=== PATIENT | male | born 1985 | race Caucasian/White ===

== ENCOUNTER 2017-05-06 17:25 | Emergency (ER) | payer OTHER ==
[~2017-05-06] VITALS: Ht 180.3 cm; Wt 124.7 kg
[~2017-05-06 17:25] MED LIST: ANTI-INFLAMMATORY; AUG250 PO; CEF300 PO; CELE-1 PO; CETI-176 PO; CHOL10005 PO; CIPR-214 PO; CIPR-344 PO; DIA5 PO; DOC100 PO; DOCU-416 PO; ENO100I SC; ESOM40CA42 PO; FLUO-202 PO; HYDR-4309 PO; HYDR100C9 PO; HYDR10TA3 PO; HYDR50CA48 PO; IBUP600T22 PO; LAMO200T46 PO; LOR5/325 PO; LURA40TA3 PO; METR-1 PO; MULT-1335 PO; MUSCLE RELAXER; OMEP-137 PO; OMEP-218 PO; ONDA4TAB PO; ONDA8TAB94 PO; OXY10 PO; OXYC-854 PO; PANT40TA65 PO; PER PO; PHEN200T32 PO; PRAZ1CAP26 PO; PRED20TA6 PO; PROM-110 PO; RIFA200T4 PO; TRAM-420 PO; TRAZ-133 PO; TRIA10.8; WARF3TAB36 PO; ZOLP-1 PO
--- NOTE | 2017-05-06 17:35 | ER Report ---
History and Physical Time Seen By MD: 17:34 (MACRINA LEY MD) HPI/ROS CHIEF COMPLAINT: Abdominal pain HISTORY OF PRESENT ILLNESS: Patient is [age] male who presents with 2-3 days worth of abdominal cramping nausea vomiting and diarrhea. Patient denies fevers or chills. Denies any antibiotic use or recent travel history. Patient has had 3 -4 episodes similar in the past and was diagnosed each time with irritable bowel syndrome. Patient reports some anorexia secondary to nausea. Denies any chest symptoms or flulike symptoms. Patient denies any blood or mucus in the stool. REVIEW OF SYSTEMS: Constitutional: No fever, no chills. Eyes: No discharge. ENT: No sore throat. Cardiovascular: No chest pain, no palpitations. Respiratory: No cough, no shortness of breath. Gastrointestinal: Periumbilical abdominal discomfort and cramping, nausea, vomiting and diarrhea. Genitourinary: No hematuria. Musculoskeletal: No back pain. Skin: No rashes. Neurological: No headache. (MACRINA LEY MD) Allergies: Coded Allergies: No Known Drug Allergies (Verified , 08/21/16) Home Meds Active Scripts Hydrocodone Bit/Acetaminophen (HYDROCODON-ACETAMINOPHEN 5-325) 1 Each Tablet, 1 EACH PO Q4H Y for PAIN, #12 TAB 0 Refills Prov:CRUZ BROCK MD 05/06/17 Ondansetron (ZOFRAN ODT) 4 Mg Tab.rapdis, 4 MG PO Q6H Y for NAUSEA/VOMITING, # 20 TAB.FRANKO 0 Refills Prov:CRUZ BROCK MD 05/06/17 Hyoscyamine Sulfate (HYOSCYAMINE SULFATE) 0.125 Mg Tab.subl, 0.125 MG SL QID Y for BLOATING, #60 TAB.SL 0 Refills Prov:CRUZ BROCK MD 05/06/17 Ibuprofen (IBUPROFEN) 600 Mg Tablet, 1 TAB PO Q6H, #60 TAB 0 Refills Prov:ROXANA ABDI MD 01/20/17 Reported Medications Celecoxib (CELEBREX) 200 Mg Capsule, 200 MG PO QDAY, CAPSULE 01/13/17 Zolpidem Tartrate (AMBIEN) Unknown Strength Tablet, PO QHS Y for prn, TAB 12/07/16 Hydroxyzine Hcl (HYDROXYZINE HCL) Unknown Strength Tablet, PO PRN 12/07/16 Prazosin Hcl (PRAZOSIN HCL) 1 Mg Capsule, 1 TAB PO QHS, #30 12/23/15 Esomeprazole Magnesium (NEXIUM) 40 Mg Capsule.dr, 1 CAP PO QDAY, CAP 09/14/15 Lamotrigine (LAMICTAL) 200 Mg Tablet, 200 MG PO DAILY 04/30/13 Fluoxetine Hcl (PROZAC) 20 Mg Capsule, 20 MG PO QDAY, CAPSULE 04/30/13 Past Medical/Surgical History Gastroesophageal reflux disease, Past medical history for pulmonary embolism, history of anxiety posttraumatic stress disorder (MACRINA LEY MD) Hx Smoking: Yes ([employer]. NONE FOR YEARS.) Smoking Status: Former Smoker Exposure to Second Hand Smoke?: Yes Hx Substance Use Disorder: No Hx Alcohol Use: Yes (MACRINA LEY MD) Constitutional Vital Sign - Last 24 Hours 05/06/17 05/06/17 05/06/17 05/06/17 17:30 17:39 17:40 17:55 Pulse 92 86 Resp 20 B/P (MAP) 142/106 142/106 (118) 143/98 (113) Pulse Ox 94 93 O2 Delivery Room Air 05/06/17 05/06/17 05/06/17 05/06/17 18:00 19:32 19:35 19:53 Pulse 76 64 B/P (MAP) 120/96 (104) 127/87 (100) Pulse Ox 91 95 05/06/17 19:57 Pulse 85 Resp 16 B/P (MAP) 128/85 (99) Pulse Ox 92 O2 Delivery Room Air Intake and Output 05/06/17 05/06/17 05/07/17 15:00 23:00 07:00 Intake Total 1000 ml Balance 1000 ml (CRUZ BROCK MD) Physical Exam General Appearance: The patient is alert, has no immediate need for airway protection and no signs of toxicity. Eyes: Pupils equal and round no pallor or injection. ENT, Mouth: Mucous membranes are moist. Respiratory: There are no retractions, lungs are clear to auscultation. Cardiovascular: Regular rate and rhythm. [ ] Gastrointestinal: Abdomen is soft diffuse periumbilical abdominal pain without guarding or rebound tenderness Neurological: Awake and alert Skin: Warm and dry, no rashes. Musculoskeletal: Neck is supple non tender. Extremities are nontender, nonswollen and have full range of motion. (MACRINA LEY MD) Medical Decision Making Data Points Result Diagram: 05/06/17 1744 05/06/17 1744 Laboratory Hematology Test 05/06/17 17:35 05/06/17 17:44 Urine Color Ernestine Urine Clarity Turbid Urine pH 5.0 pH (4.8-9.5) Urine Specific [place] 1.028 Urine Protein 30 mg/dL (NEGATIVE) Urine Glucose (UA) Negative mg/dL (NEGATIVE) Urine Ketones Negative mg/dL (NEGATIVE) Urine Blood Negative (NEGATIVE) Urine Nitrite Negative (NEGATIVE) Urine Bilirubin Negative (NEGATIVE) Urine Urobilinogen Negative mg/dL (0.2-1.9) Urine Leukocyte Esterase Negative (NEGATIVE) Urine RBC None /HPF (0-2/HPF) Urine WBC None /HPF (0-5/HPF) Urine Squamous Epithelial Cells None /LPF (</=FEW) Urine Amorphous Crystals Few /HPF Urine Bacteria Negative /HPF (NONE-FEW) Urine Mucus Few /HPF (NONE-FEW) Stool Occult Blood (IFOB) Positive (NEGATIVE) Red Blood Count 5.69 M/uL (4.00-5.60) Mean Corpuscular Volume 90.9 fL (80.0-96.0) Mean Corpuscular Hemoglobin 31.7 pg (26.0-33.0) Mean Corpuscular Hemoglobin Concent 34.9 g/dL (32.0-36.0) Red Cell Distribution Width 13.4 % (11.5-14.5) Mean Platelet Volume 8.4 fL (7.2-11.1) Neutrophils (%) (Auto) 67.4 % (39.4-72.5) Lymphocytes (%) (Auto) 22.9 % (17.6-49.6) Monocytes (%) (Auto) 7.6 % (4.1-12.4) Eosinophils (%) (Auto) 1.7 % (0.4-6.7) Basophils (%) (Auto) 0.4 % (0.3-1.4) Nucleated RBC Relative Count (auto) 0.1 /100WBC Neutrophils # (Auto) 7.0 K/uL (2.0-7.4) Lymphocytes # (Auto) 2.4 K/uL (1.3-3.6) Monocytes # (Auto) 0.8 K/uL (0.3-1.0) Eosinophils # (Auto) 0.2 K/uL (0.0-0.5) Basophils # (Auto) 0.0 K/uL (0.0-0.1) Nucleated RBC Absolute Count (auto) 0.01 K/uL Stool Leukocytes, Qualitative Positive Sodium Level 137 mmol/L (137-145) Potassium Level 3.8 mmol/L (3.5-5.0) Chloride Level 100 mmol/L (98-107) Carbon Dioxide Level 23 mmol/L (22-30) Blood Urea Nitrogen 8 mg/dl (9-21) Creatinine 0.90 mg/dl (0.66-1.25) Glomerular Filtration Rate Calc > 60.0 Random Glucose 107 mg/dl (75-110) Calcium Level 9.2 mg/dl (8.4-10.2) Total Bilirubin 0.8 mg/dl (0.2-1.3) Aspartate Amino Transf (AST/SGOT) 31 U/L (0-35) Alanine Aminotransferase (ALT/SGPT) 64 U/L (0-56) Alkaline Phosphatase 69 U/L (0-126) Total Protein 7.8 gm/dl (6.3-8.2) Albumin 4.5 g/dl (3.5-5.0) Lipase 88 U/L (23-300) Clostridium Difficile Toxin A & B Negative Clostridium difficile Antigen Negative Helicobacter pylori IgG Antibody Negative (NEGATIVE) Chemistry Test 05/06/17 17:35 05/06/17 17:44 Urine Color Ernestine Urine Clarity Turbid Urine pH 5.0 pH (4.8-9.5) Urine Specific [place] 1.028 Urine Protein 30 mg/dL (NEGATIVE) Urine Glucose (UA) Negative mg/dL (NEGATIVE) Urine Ketones Negative mg/dL (NEGATIVE) Urine Blood Negative (NEGATIVE) Urine Nitrite Negative (NEGATIVE) Urine Bilirubin Negative (NEGATIVE) Urine Urobilinogen Negative mg/dL (0.2-1.9) Urine Leukocyte Esterase Negative (NEGATIVE) Urine RBC None /HPF (0-2/HPF) Urine WBC None /HPF (0-5/HPF) Urine Squamous Epithelial Cells None /LPF (</=FEW) Urine Amorphous Crystals Few /HPF Urine Bacteria Negative /HPF (NONE-FEW) Urine Mucus Few /HPF (NONE-FEW) Stool Occult Blood (IFOB) Positive (NEGATIVE) White Blood Count 10.4 k/uL (4.5-11.0) Red Blood Count 5.69 M/uL (4.00-5.60) Hemoglobin 18.0 g/dL (14.0-18.0) Hematocrit 51.7 % (42.0-52.0) Mean Corpuscular Volume 90.9 fL (80.0-96.0) Mean Corpuscular Hemoglobin 31.7 pg (26.0-33.0) Mean Corpuscular Hemoglobin Concent 34.9 g/dL (32.0-36.0) Red Cell Distribution Width 13.4 % (11.5-14.5) Platelet Count 305 K/uL (150-450) Mean Platelet Volume 8.4 fL (7.2-11.1) Neutrophils (%) (Auto) 67.4 % (39.4-72.5) Lymphocytes (%) (Auto) 22.9 % (17.6-49.6) Monocytes (%) (Auto) 7.6 % (4.1-12.4) Eosinophils (%) (Auto) 1.7 % (0.4-6.7) Basophils (%) (Auto) 0.4 % (0.3-1.4) Nucleated RBC Relative Count (auto) 0.1 /100WBC Neutrophils # (Auto) 7.0 K/uL (2.0-7.4) Lymphocytes # (Auto) 2.4 K/uL (1.3-3.6) Monocytes # (Auto) 0.8 K/uL (0.3-1.0) Eosinophils # (Auto) 0.2 K/uL (0.0-0.5) Basophils # (Auto) 0.0 K/uL (0.0-0.1) Nucleated RBC Absolute Count (auto) 0.01 K/uL Stool Leukocytes, Qualitative Positive Glomerular Filtration Rate Calc > 60.0 Calcium Level 9.2 mg/dl (8.4-10.2) Total Bilirubin 0.8 mg/dl (0.2-1.3) Aspartate Amino Transf (AST/SGOT) 31 U/L (0-35) Alanine Aminotransferase (ALT/SGPT) 64 U/L (0-56) Alkaline Phosphatase 69 U/L (0-126) Total Protein 7.8 gm/dl (6.3-8.2) Albumin 4.5 g/dl (3.5-5.0) Lipase 88 U/L (23-300) Clostridium Difficile Toxin A & B Negative Clostridium difficile Antigen Negative Helicobacter pylori IgG Antibody Negative (NEGATIVE) Urinalysis Test 05/06/17 17:35 Urine Color Ernestine Urine Clarity Turbid Urine pH 5.0 pH (4.8-9.5) Urine Specific [place] 1.028 Urine Protein 30 mg/dL (NEGATIVE) Urine Glucose (UA) Negative mg/dL (NEGATIVE) Urine Ketones Negative mg/dL (NEGATIVE) Urine Blood Negative (NEGATIVE) Urine Nitrite Negative (NEGATIVE) Urine Bilirubin Negative (NEGATIVE) Urine Urobilinogen Negative mg/dL (0.2-1.9) Urine Leukocyte Esterase Negative (NEGATIVE) Urine RBC None /HPF (0-2/HPF) Urine WBC None /HPF (0-5/HPF) Urine Squamous Epithelial Cells None /LPF (</=FEW) Urine Amorphous Crystals Few /HPF Urine Bacteria Negative /HPF (NONE-FEW) Urine Mucus Few /HPF (NONE-FEW) (CRUZ BROCK MD) EKG/Imaging Imaging CT abdomen and pelvis with IV contrast Indication: Abdominal pain. Comparison: 04/16/2014.. Technique: Axial CT images were obtained through the abdomen and pelvis during injection of nonionic iodinated intravenous contrast. Reformatted coronal and sagittal images were also obtained. One of the following dose optimization techniques was utilized in the performance of this exam: Automated exposure control; adjustment of the mA and/ or kV according to the patient's size; or use of an iterative reconstruction technique. Specific details can be referenced in the facility's radiology CT exam operational policy. Contrast: 75 ml of Isovue-370 IV contrast. Findings: Lower lung chowdary: Limited views lower lung field are unremarkable. Liver: No focal parenchymal abnormality of the liver. Biliary: Gallbladder appears unremarkable as well as the intra and extra hepatic biliary system. Pancreas: Normal appearance. Spleen: Normal appearance. Adrenal glands: Unremarkable. Kidneys / retroperitoneum: No evidence of nephrolithiasis or hydronephrosis. No focal abnormality. Bowel / peritoneum / mesenteries: Colon is mainly decompressed shows no focal normality. The appendix normal. Small bowel shows no focal abnormality or obstruction. Stomach is unremarkable. No free air, free fluid, fluid collections or areas of inflammation. Small umbilical hernia containing fat. Lymph node assessment: No pathologic adenopathy identified. Pelvic structures: Appear unremarkable. Vessels: No significant atherosclerotic calcifications seen throughout a nonaneurysmal abdominal aorta and branches. Musculoskeletal / Body wall: No acute or aggressive osseous abnormality. Incidental note of an unilateral right pars defect at L5 level without spondylolisthesis. IMPRESSION: 1. No acute intra-abdominal abnormality 2. Incidental note of an unilateral right pars defect at L5 level without spondylolisthesis. Report Dictated By: Beto Valle at 05/06/2017 6:24 PM (CRUZ BROCK MD) ED Course/Re-evaluation ED Course 05/06/2017 5:53:45 pm patient with periumbilical abdominal pain for the past 2- 3 days along with nausea vomiting and diarrhea. We will place an IV given a liter of normal saline. We'll give IV Zofran and IV Toradol and Lomotil. We will perform abdominal CT scan with IV contrast. Decision to Disposition Date: May 06, 2017 Decision to Disposition Time: 18:00 (MACRINA LEY MD) Clinical Indication for ER IV: Hydration, IV Access ED Course Reviewed this patient with Dr. Ley at shift change and assumed care of the patient. I reviewed lab tests with the patient. No major problems. Based on symptoms and history, sounds like he has irritable bowel syndrome. We talked at length about option. Will continue with Zofran for nausea. He will try some Gas- X for gas. Will start Hyoscyamine to try as an anti-spasmodic. Will provide limited supply of Lortab and discussed the need to be very cautious with this given need to not become dependent and the possibility of too big a swing to constipation. Decision to Disposition Date: May 06, 2017 Decision to Disposition Time: 19:53 (CRUZ BROCK MD) Depart Departure Latest Vital Signs Vital Signs Date Time Temp Pulse Resp B/P (MAP) Pulse Ox O2 Delivery O2 Flow Rate FiO2 05/06/17 19:57 85 16 128/85 (99) 92 Room Air (CRUZ BROCK MD) Impression: Primary Impression: Irritable bowel syndrome Condition: Improved Disposition: HOME OR SELF-CARE Referrals: ARMOND,KARTHIK N PA-C (PCP) New Scripts Hydrocodone Bit/Acetaminophen (HYDROCODON-ACETAMINOPHEN 5-325) 1 Each Tablet 1 EACH PO Q4H Y for PAIN, #12 TAB 0 Refills Prov: CRUZ BROCK MD 05/06/17 Ondansetron (ZOFRAN ODT) 4 Mg Tab.rapdis 4 MG PO Q6H Y for NAUSEA/VOMITING, #20 TAB.FRANKO 0 Refills Prov: CRUZ BROCK MD 05/06/17 Hyoscyamine Sulfate (HYOSCYAMINE SULFATE) 0.125 Mg Tab.subl 0.125 MG SL QID Y for BLOATING, #60 TAB.SL 0 Refills Prov: CRUZ BROCK MD 05/06/17 Patient Instructions: Irritable Bowel Syndrome (ED) Additional Instructions: Try the anti-spasmodic medication hyoscyamine 0.125mg tablets every 6 hours as needed for spasming and pain. Try using some gas-x over the counter. Zofran 4mg, one every 6 hours as needed for nausea. For severe pain, Lortab 5/325, one every 4 hours. Follow-up with your regular doctor for further evaluation. If the hyoscyamine does not help, other antispasmodics can still be effective, often requiring trials of the different ones to see what works. Problem Qualifiers Primary Impression: Irritable bowel syndrome Irritable bowel syndrome type: with both diarrhea and constipation Qualified Codes: K58.2 - Mixed irritable bowel syndrome MACRINA LEY MD May 06, 2017 17:35 CRUZ BROCK MD May 06, 2017 18:54
[2017-05-06] MEDS ORDERED: NS(*) 0.9% 1000 ML BAG 1,000 ML IV ONE (17:49)
[2017-05-06] MEDS ORDERED: DIPHENOX/ATROPINE 2.5-0.025MG PO ONE (17:50)
[2017-05-06] MEDS ORDERED: ONDANSETRON 4 MG/2 ML VIAL IVP ONE ×2 (17:50→19:55)
[2017-05-06] MEDS ORDERED: KETOROLAC 30 MG/ML VIAL IVP ONE (17:50)
[2017-05-06 17:59] LABS: PLATELET COUNT, AUTOMATED 305 K/uL (150-450)
[2017-05-06] MEDS ORDERED: IOPAMIDOL 76% 75 ML INFUS BTL 75 ML ONE (18:03)
[2017-05-06] MEDS ORDERED: NS 0.9% 20 ML SDV 0 ML ONE (18:03)
--- NOTE | 2017-05-06 18:35 | RADIOLOGY IMAGING REPORT ---
FACILITY: [facility] - [place] PATIENT NAME: Hay Hart : 1985 MR: [id number] V: [id number] EXAM DATE: ORDERING PHYSICIAN: MACRINA MALDONADO TECHNOLOGIST: Location: [facility] Patient: Hay Hart : 1985 Visit/Account:[id number] Date of Sevice: 05/06/2017 CT abdomen and pelvis with IV contrast Indication: Abdominal pain. Comparison: 04/16/2014.. Technique: Axial CT images were obtained through the abdomen and pelvis during injection of nonioni c iodinated intravenous contrast. Reformatted coronal and sagittal images were also obtained. One of the following dose optimization techniques was utilized in the performance of this exam: Autom ated exposure control; adjustment of the mA and/or kV according to the patient's size; or use of an i terative reconstruction technique. Specific details can be referenced in the facility's radiology C T exam operational policy. Contrast: 75 ml of Isovue-370 IV contrast. Findings: Lower lung chowdary: Limited views lower lung field are unremarkable. Liver: No focal parenchymal abnormality of the liver. Biliary: Gallbladder appears unremarkable as well as the intra and extra hepatic biliary system. Pancreas: Normal appearance. Spleen: Normal appearance. Adrenal glands: Unremarkable. Kidneys / retroperitoneum: No evidence of nephrolithiasis or hydronephrosis. No focal abnormality. Bowel / peritoneum / mesenteries: Colon is mainly decompressed shows no focal normality. The appendix normal. Small bowel shows no focal abnormality or obstruction. Stomach is unremarkable. No free air, free fluid, fluid collections or areas of inflammation. Small umbilical hernia containin g fat. Lymph node assessment: No pathologic adenopathy identified. Pelvic structures: Appear unremarkable. Vessels: No significant atherosclerotic calcifications seen throughout a nonaneurysmal abdominal aort a and branches. Musculoskeletal / Body wall: No acute or aggressive osseous abnormality. Incidental note of an unilat eral right pars defect at L5 level without spondylolisthesis. IMPRESSION: 1. No acute intra-abdominal abnormality 2. Incidental note of an unilateral right pars defect at L5 level without spondylolisthesis. Report Dictated By: Beto Valle at 05/06/2017 6:24 PM Report E-Signed By: Beto Valle at 05/06/2017 6:31 PM WSN:[id number]
[2017-05-06] MEDS ORDERED: ONDANSETRON 4 MG ODT TH SL ONE (19:55)
[2017-05-06] MEDS ORDERED: HYOS0.1224 SL (19:55)
[2017-05-06] MEDS ORDERED: APAP/HYDROCODONE 325/5 TAB PO ONE (19:55)
[2017-05-06] MEDS ORDERED: HYOSCYAMINE SULF*0.125 MG SUBL SL ONE (19:55)
[2017-05-06] MEDS ORDERED: LOR5/325 PO (19:55)
[2017-05-06] MEDS ORDERED: ONDA4TAB PO (19:55)
[2017-05-06] MEDS ORDERED: ACET/HYDROC 5/325MG TH ER ONLY 2 TAB/BOTTLE PO ONE (19:55)
[2017-05-06 19:57] VITALS: BP 128/85
== END 2017-05-06 20:09 | disposition home or self-care (01) ==
LOC: ER 17:37
DX: K58.2 Mixed irritable bowel syndrome (principal)
CPT/HCPCS: 74177; 81001; 82274; 83630; 83690; 85025; 86677; 87045; 87324; 87449; 96361; 96374; 96375; 96376; 99284; J1885; J2405; J7030; Q9967; S0119; 82040; 82247; 82310; 82374; 82435; 82565; 82947; 84075; 84132; 84155; 84295; 84450; 84460; 84520; J7050

== ENCOUNTER 2017-06-07 00:01 | Emergency (ER) | payer OTHER ==
[~2017-06-07 00:01] MED LIST changes: +HYOS0.1224 SL
--- NOTE | 2017-06-07 00:03 | ER Report ---
History and Physical Time Seen By MD: 00:02 HPI/ROS CHIEF COMPLAINT: Abdominal pain, vomiting and diarrhea HISTORY OF PRESENT ILLNESS: 32-year-old male presents ambulatory to the ER with diarrhea since Tuesday, cramping and bloating began over the last 24 hours. He began vomiting about 6 hours ago. He's had multiple episodes of vomiting. Patient states he had a very similar presentation 4 weeks ago here in the emergency department. He said several similar presentations over the years. He states he's been diagnosed with IBS. Patient denies consumption of bad food or exposure to ill contacts. He notes no fevers. He notes no blood in emesis or diarrhea. REVIEW OF SYSTEMS: Respiratory: No cough, no dyspnea. Cardiovascular: No chest pain, no palpitations. Gastrointestinal: As above Musculoskeletal: No back pain. Allergies: Coded Allergies: No Known Drug Allergies (Verified , 08/21/16) Home Meds Active Scripts Oxycodone Hcl/Acetaminophen (PERCOCET 5-325 MG TABLET) 1 Each Tablet, 1 EACH PO Q4-6H Y for PAIN, #12 Prov:NURIA MCBRIDE DO 06/07/17 Ondansetron (ZOFRAN ODT) 4 Mg Tab.rapdis, 4 MG PO every 6 hours Y for NAUSEA/ VOMITING, #12 TAB TAKE 1 TABLET BY MOUTH EVERY 12 HOURS Prov:NURIA MCBRIDE DO 06/07/17 Hyoscyamine Sulfate (HYOSCYAMINE SULFATE) 0.125 Mg Tab.subl, 0.125 MG SL QID Y for BLOATING, #60 TAB.SL 0 Refills Prov:CRUZ BROCK MD 05/06/17 Ibuprofen (IBUPROFEN) 600 Mg Tablet, 1 TAB PO Q6H, #60 TAB 0 Refills Prov:ROXANA ABDI MD 01/20/17 Reported Medications Celecoxib (CELEBREX) 200 Mg Capsule, 200 MG PO QDAY, CAPSULE 01/13/17 Hydroxyzine Hcl (HYDROXYZINE HCL) Unknown Strength Tablet, PO PRN 12/07/16 Prazosin Hcl (PRAZOSIN HCL) 1 Mg Capsule, 1 TAB PO QHS, #30 12/23/15 Esomeprazole Magnesium (NEXIUM) 40 Mg Capsule.dr, 1 CAP PO QDAY, CAP 09/14/15 Lamotrigine (LAMICTAL) 200 Mg Tablet, 200 MG PO DAILY 04/30/13 Fluoxetine Hcl (PROZAC) 20 Mg Capsule, 20 MG PO QDAY, CAPSULE 04/30/13 Discontinued Reported Medications Zolpidem Tartrate (AMBIEN) Unknown Strength Tablet, PO QHS Y for prn, TAB 12/07/16 Discontinued Scripts Hydrocodone Bit/Acetaminophen (HYDROCODON-ACETAMINOPHEN 5-325) 1 Each Tablet, 1 EACH PO Q4H Y for PAIN, #12 TAB 0 Refills Prov:CRUZ BROCK MD 05/06/17 Ondansetron (ZOFRAN ODT) 4 Mg Tab.rapdis, 4 MG PO Q6H Y for NAUSEA/VOMITING, # 20 TAB.FRANKO 0 Refills Prov:CRUZ BROCK MD 05/06/17 Past Medical/Surgical History Gastroesophageal reflux disease, Past medical history for pulmonary embolism, history of anxiety posttraumatic stress disorder, IBS Reviewed Nurses Notes: Yes Old Medical Records Reviewed: Yes Hx Smoking: Yes ([employer]IAL S[employer]. NONE FOR YEARS.) Smoking Status: Former Smoker Exposure to Second Hand Smoke?: Yes Hx Substance Use Disorder: No Hx Alcohol Use: Yes Constitutional Vital Sign - Last 24 Hours 06/07/17 06/07/17 06/07/17 06/07/17 00:03 00:04 00:16 00:19 Temp 97.7 Pulse 67 64 Resp 24 B/P (MAP) 151/111 (124) 151/111 135/90 (105) Pulse Ox 99 98 O2 Delivery Room Air 06/07/17 06/07/17 06/07/17 06/07/17 00:30 00:31 00:36 00:41 Pulse 70 77 B/P (MAP) 138/89 (105) Pulse Ox 95 91 06/07/17 06/07/17 06/07/17 06/07/17 00:45 00:56 01:00 01:05 Pulse 73 74 B/P (MAP) 112/69 (83) Pulse Ox 93 93 O2 Flow Rate 1.0 06/07/17 06/07/17 06/07/17 06/07/17 01:20 01:30 01:35 01:40 Pulse 72 72 B/P (MAP) 110/67 (81) Pulse Ox 94 92 O2 Delivery Room Air Physical Exam General Appearance: The patient is alert, has no immediate need for airway protection and no current signs of toxicity. Moderate distress, vital signs stable, slightly pale appearing, skin warm and dry HEENT: Pupils equal and round no injection. Oropharynx without redness or exudate, mucous membranes appear moist Respiratory: Chest is non tender, lungs are clear to auscultation. Cardiac: regular rate and rhythm Gastrointestinal: Abdomen is soft, mild distention, mild bilateral upper quadrant tenderness, no rebound or guarding, no masses, bowel sounds normal. Musculoskeletal: Neck: Neck is supple and non tender. Extremities have full range of motion and are non tender. Skin: No rashes or lesions. DIFFERENTIAL DIAGNOSIS: After history and physical exam differential diagnosis was considered for abdominal pain including but not limited to appendicitis, cholecystitis, gastritis, gastroenteritis, viral syndrome, food poisoning, IBS and urinary tract infection. Medical Decision Making Data Points Result Diagram: 06/07/17606/07/176 Laboratory Hematology Test 06/07/17 00:07 06/07/17 01:11 Red Blood Count 5.80 M/uL (4.00-5.60) Mean Corpuscular Volume 90.9 fL (80.0-96.0) Mean Corpuscular Hemoglobin 32.1 pg (26.0-33.0) Mean Corpuscular Hemoglobin Concent 35.3 g/dL (32.0-36.0) Red Cell Distribution Width 12.9 % (11.5-14.5) Mean Platelet Volume 8.0 fL (7.2-11.1) Neutrophils (%) (Auto) 46.4 % (39.4-72.5) Lymphocytes (%) (Auto) 31.3 % (17.6-49.6) Monocytes (%) (Auto) 18.2 % (4.1-12.4) Eosinophils (%) (Auto) 3.5 % (0.4-6.7) Basophils (%) (Auto) 0.6 % (0.3-1.4) Nucleated RBC Relative Count (auto) 0.2 /100WBC Neutrophils # (Auto) 3.2 K/uL (2.0-7.4) Lymphocytes # (Auto) 2.1 K/uL (1.3-3.6) Monocytes # (Auto) 1.2 K/uL (0.3-1.0) Eosinophils # (Auto) 0.2 K/uL (0.0-0.5) Basophils # (Auto) 0.0 K/uL (0.0-0.1) Nucleated RBC Absolute Count (auto) 0.02 K/uL Sodium Level 136 mmol/L (137-145) Potassium Level 3.9 mmol/L (3.5-5.0) Chloride Level 99 mmol/L (98-107) Carbon Dioxide Level 22 mmol/L (22-30) Blood Urea Nitrogen 12 mg/dl (9-21) Creatinine 1.10 mg/dl (0.66-1.25) Glomerular Filtration Rate Calc > 60.0 Random Glucose 106 mg/dl (75-110) Calcium Level 9.2 mg/dl (8.4-10.2) Total Bilirubin 0.8 mg/dl (0.2-1.3) Aspartate Amino Transf (AST/SGOT) 26 U/L (0-35) Alanine Aminotransferase (ALT/SGPT) 59 U/L (0-56) Alkaline Phosphatase 77 U/L (0-126) Total Protein 7.7 gm/dl (6.3-8.2) Albumin 4.5 g/dl (3.5-5.0) Amylase Level 53 U/L (0-110) Lipase 187 U/L (23-300) Urine Color Yellow Urine Clarity Clear Urine pH 5.0 pH (4.8-9.5) Urine Specific [place] 1.032 Urine Protein 30 mg/dL (NEGATIVE) Urine Glucose (UA) Negative mg/dL (NEGATIVE) Urine Ketones Trace mg/dL (NEGATIVE) Urine Blood Moderate (NEGATIVE) Urine Nitrite Negative (NEGATIVE) Urine Bilirubin Negative (NEGATIVE) Urine Urobilinogen Negative mg/dL (0.2-1.9) Urine Leukocyte Esterase Negative (NEGATIVE) Urine RBC 1 /HPF (0-2/HPF) Urine WBC 1 /HPF (0-5/HPF) Urine Squamous Epithelial Cells Moderate /LPF (</=FEW) Urine Bacteria Negative /HPF (NONE-FEW) Urine Hyaline Casts Few /LPF (NONE-FEW) Urine Mucus Moderate /HPF (NONE-FEW) Chemistry Test 06/07/17 00:07 06/07/17 01:11 White Blood Count 6.8 k/uL (4.5-11.0) Red Blood Count 5.80 M/uL (4.00-5.60) Hemoglobin 18.6 g/dL (14.0-18.0) Hematocrit 52.7 % (42.0-52.0) Mean Corpuscular Volume 90.9 fL (80.0-96.0) Mean Corpuscular Hemoglobin 32.1 pg (26.0-33.0) Mean Corpuscular Hemoglobin Concent 35.3 g/dL (32.0-36.0) Red Cell Distribution Width 12.9 % (11.5-14.5) Platelet Count 286 K/uL (150-450) Mean Platelet Volume 8.0 fL (7.2-11.1) Neutrophils (%) (Auto) 46.4 % (39.4-72.5) Lymphocytes (%) (Auto) 31.3 % (17.6-49.6) Monocytes (%) (Auto) 18.2 % (4.1-12.4) Eosinophils (%) (Auto) 3.5 % (0.4-6.7) Basophils (%) (Auto) 0.6 % (0.3-1.4) Nucleated RBC Relative Count (auto) 0.2 /100WBC Neutrophils # (Auto) 3.2 K/uL (2.0-7.4) Lymphocytes # (Auto) 2.1 K/uL (1.3-3.6) Monocytes # (Auto) 1.2 K/uL (0.3-1.0) Eosinophils # (Auto) 0.2 K/uL (0.0-0.5) Basophils # (Auto) 0.0 K/uL (0.0-0.1) Nucleated RBC Absolute Count (auto) 0.02 K/uL Glomerular Filtration Rate Calc > 60.0 Calcium Level 9.2 mg/dl (8.4-10.2) Total Bilirubin 0.8 mg/dl (0.2-1.3) Aspartate Amino Transf (AST/SGOT) 26 U/L (0-35) Alanine Aminotransferase (ALT/SGPT) 59 U/L (0-56) Alkaline Phosphatase 77 U/L (0-126) Total Protein 7.7 gm/dl (6.3-8.2) Albumin 4.5 g/dl (3.5-5.0) Amylase Level 53 U/L (0-110) Lipase 187 U/L (23-300) Urine Color Yellow Urine Clarity Clear Urine pH 5.0 pH (4.8-9.5) Urine Specific [place] 1.032 Urine Protein 30 mg/dL (NEGATIVE) Urine Glucose (UA) Negative mg/dL (NEGATIVE) Urine Ketones Trace mg/dL (NEGATIVE) Urine Blood Moderate (NEGATIVE) Urine Nitrite Negative (NEGATIVE) Urine Bilirubin Negative (NEGATIVE) Urine Urobilinogen Negative mg/dL (0.2-1.9) Urine Leukocyte Esterase Negative (NEGATIVE) Urine RBC 1 /HPF (0-2/HPF) Urine WBC 1 /HPF (0-5/HPF) Urine Squamous Epithelial Cells Moderate /LPF (</=FEW) Urine Bacteria Negative /HPF (NONE-FEW) Urine Hyaline Casts Few /LPF (NONE-FEW) Urine Mucus Moderate /HPF (NONE-FEW) Urinalysis Test 06/07/17 01:11 Urine Color Yellow Urine Clarity Clear Urine pH 5.0 pH (4.8-9.5) Urine Specific [place] 1.032 Urine Protein 30 mg/dL (NEGATIVE) Urine Glucose (UA) Negative mg/dL (NEGATIVE) Urine Ketones Trace mg/dL (NEGATIVE) Urine Blood Moderate (NEGATIVE) Urine Nitrite Negative (NEGATIVE) Urine Bilirubin Negative (NEGATIVE) Urine Urobilinogen Negative mg/dL (0.2-1.9) Urine Leukocyte Esterase Negative (NEGATIVE) Urine RBC 1 /HPF (0-2/HPF) Urine WBC 1 /HPF (0-5/HPF) Urine Squamous Epithelial Cells Moderate /LPF (</=FEW) Urine Bacteria Negative /HPF (NONE-FEW) Urine Hyaline Casts Few /LPF (NONE-FEW) Urine Mucus Moderate /HPF (NONE-FEW) ED Course/Re-evaluation Clinical Indication for ER IV: Hydration, IV Access ED Course Patient was admitted to an examination room. H&P was done. The differential diagnoses was considered. On clinical examination. Patient has a benign nonsurgical abdomen. He is mild tenderness of both upper quadrants. Bowel sounds are hyperactive. Patient's treated with IV fluids and medication. His diagnostic laboratory studies are unremarkable. Patient advised to conservative treatment plan of clear liquid diet. He is given a limited supply of Percocet and Zofran for symptom management. He states he has a consult appointment with GI down in [place] on June 20. Patient states she'll follow up with his primary care in the next few days. Decision to Disposition Date: Jun 07, 2017 Decision to Disposition Time: 00:39 Depart Departure Latest Vital Signs Vital Signs Date Time Temp Pulse Resp B/P (MAP) Pulse Ox O2 Delivery O2 Flow Rate FiO2 06/07/17 01:40 92 Room Air 06/07/17 01:35 72 06/07/17 01:30 110/67 (81) 06/07/17 00:45 1.0 06/07/17 00:04 97.7 24 Impression: Primary Impression: Vomiting and diarrhea Additional Impressions: Abdominal distention IBS (irritable bowel syndrome) Condition: Improved Disposition: HOME OR SELF-CARE Referrals: KARTHIK LEAHY PA-C (PCP) New Scripts Oxycodone Hcl/Acetaminophen (PERCOCET 5-325 MG TABLET) 1 Each Tablet 1 EACH PO Q4-6H Y for PAIN, #12 Prov: NURIA MCBRIDE DO 06/07/17 Ondansetron (ZOFRAN ODT) 4 Mg Tab.rapdis 4 MG PO every 6 hours Y for NAUSEA/VOMITING, #12 TAB TAKE 1 TABLET BY MOUTH EVERY 12 HOURS Prov: NURIA MCBRIDE DO 06/07/17 Patient Instructions: Irritable Bowel Syndrome (ED) Additional Instructions: Follow clear liquid diet for 24-48 hours, then advance to Pia diet,( bananas, rice, applesauce and toast) Follow-up with your primary care if unimproved in 3-5 days Problem Qualifiers Additional Impressions: IBS (irritable bowel syndrome) Irritable bowel syndrome type: with diarrhea Qualified Codes: K58.0 - Irritable bowel syndrome with diarrhea NURIA MCBRIDE DO Jun 07, 2017 00:03
[2017-06-07] MEDS ORDERED: NS(*) 0.9% 1000 ML BAG 1,000 ML IV ONE (00:13)
[2017-06-07] MEDS ORDERED: KETOROLAC 30 MG/ML VIAL IVP ONE (00:15)
[2017-06-07] MEDS ORDERED: ONDANSETRON 4 MG/2 ML VIAL IVP ONE (00:15)
[2017-06-07] MEDS ORDERED: HYDROmorphone(ER ONLY) 1 MG/ML IVP ONE (00:15)
[2017-06-07 00:21] LABS: PLATELET COUNT, AUTOMATED 286 K/uL (150-450)
[2017-06-07] MEDS ORDERED: OXYC-865 PO (00:43)
[2017-06-07] MEDS ORDERED: ONDA4TAB PO (00:43)
[2017-06-07] MEDS ORDERED: ONDANSETRON 4 MG ODT TH SL ONE (01:05)
[2017-06-07] MEDS ORDERED: oxyCODONE/ACETAMIN 5/325MG TH 2 TAB/BOTTLE PO ONE (01:05)
[2017-06-07 01:30] VITALS: BP 110/67
== END 2017-06-07 01:45 | disposition home or self-care (01) ==
LOC: ER 00:27
DX: K58.0 Irritable bowel syndrome with diarrhea (principal)
CPT/HCPCS: 81001; 82150; 83690; 85025; 96361; 96374; 96375; 99284; J1170; J1885; J2405; J7030; S0119; 82040; 82247; 82310; 82374; 82435; 82565; 82947; 84075; 84132; 84155; 84295; 84450; 84460; 84520